=== PATIENT | male | born 1950 | race Caucasian/White ===

== ENCOUNTER 2021-01-03 19:07 | Emergency (ER) | payer MEDICARE, SELFPAY ==
--- NOTE | ~2021-01-03 | CT_ITS ---
EXAMINATION: CT brain wo con DATE: 01/03/2021 21:53 INDICATION: Head injury. TECHNIQUE: Computed tomography (CT) of the head was performed without intravenous contrast. The mA wa s adjusted according to patient size. Iterative reconstruction technique was employed. The dose-lengt h product was 605.33 mGy-cm. COMPARISON: None FINDINGS: There is no intracranial hemorrhage, acute infarction, or abnormal intracranial mass lesion . The ventricles are normal in size. The orbits are normal. There is mild mucosal thickening in the p aranasal sinuses. There are fractures of the nasal bones, right nasal process of maxilla, and nasal s eptum. There is a trace right mastoid effusion. IMPRESSION: 1. Normal brain. 2. Fractures of the nasal bones, right nasal process of maxilla, and nasal septum. Reviewed, dictated and finalized at location A. IMPRESSION: 1. Normal brain. 2. Fractures of the nasal bones, right nasal process of maxilla, and nasal sept um.
--- NOTE | ~2021-01-03 | CT_ITS ---
EXAMINATION: CT facial & cervical spine wo DATE: 01/03/2021 21:53 INDICATION: Head injury. TECHNIQUE: Computed tomography (CT) of the maxillofacial region and cervical spine was performed with out intravenous contrast. Automated exposure control and iterative reconstruction technique were empl oyed. The dose-length product was 343.95 mGy-cm. COMPARISON: None FINDINGS: MAXILLOFACIAL CT: There is rightward deviation of the nasal septum. There are fractures of the nasal septum, nasal bone s, and right nasal process of maxilla. The orbits are normal. There is right periorbital soft tissue swelling. There is a trace right mastoid effusion. CERVICAL SPINE CT: There is complete opacification of the visualized portion of right lung apex. Bone alignment is cindy l. There is mild chronic anterior wedging of T1 and T2 vertebral bodies. There is mildly decreased di sc height at C3-C4, severely decreased disc height at C4-C5 and C5-C6, and moderately decreased disc height at C6-C7 and C7-T1. Osseous central spinal canal is developmentally small from C3 to C6. There is intermittent ossification of posterior longitudinal ligament from C3 to C6. The following disc le vels are specifically discussed: C2-C3: There is mild bilateral uncovertebral joint osteoarthritis. There is moderate bilateral facet joint osteoarthritis. There is mild left neural foraminal stenosis. There is mild central canal steno sis. C3-C4: There is mild bilateral uncovertebral joint osteoarthritis. There is severe left facet joint o steoarthritis. There is moderate left neural foraminal stenosis. There is mild central canal stenosis . C4-C5: There is severe bilateral uncovertebral joint osteoarthritis. There is no facet joint osteoart hritis. There is mild right and moderate left neural foraminal stenosis. There is moderate central ca nal stenosis. C5-C6: There is severe bilateral uncovertebral joint osteoarthritis. There is no facet joint osteoart hritis. There is mild bilateral neural foraminal stenosis. There is moderate central canal stenosis. C6-C7: There is mild right and severe left uncovertebral joint osteoarthritis. There is mild bilatera l facet joint osteoarthritis. There is mild left neural foraminal stenosis. There is mild central can al stenosis. C7-T1: There is moderate bilateral uncovertebral joint osteoarthritis. There is severe right and mild left facet joint osteoarthritis. There is mild bilateral neural foraminal stenosis. There is mild ce ntral canal stenosis. IMPRESSION: 1. Fractures of the nasal septum, nasal bones, and right nasal process of maxilla. 2. Severe cervical spondylosis. 3. Complete opacification of the visualized portion of right lung apex. Chest radiographs are recomme nded. Reviewed, dictated and finalized at location A. IMPRESSION: 1. Fractures of the nasal septum, nasal bones, and right nasal process of maxil la. 2. Severe cervical spondylosis. 3. Complete opacification of the visualized portion of right lung apex. Chest r adiographs are recommended.
[2021-01-03 19:10] VITALS: BP 124/74; PULSE 92; RESP 18; TEMP 37.1; O2SAT 100
--- NOTE | 2021-01-03 19:33 | ED.GENADULT ---
HPI - General Adult General Chief complaint: Fall Stated complaint: FALL/LACERATION Time Seen by Provider: 01/03/21 19:18 History of Present Illness HPI narrative: Patient 70-year-old gentleman who presents the emergency department with chief complaint of fall and head injury. The patient reports that he was walking up the sidewalk at the [facility] and had not had anything to drink today and hit a crack in the sidewalk and fell forward. The patient states he struck his face against the concrete reports he had no loss of conscious reports that he is not on any blood thinners. Patient reports he has a laceration to his nose reports that its not improved by anything or is worsened by anything. Patient reports he has history of lung cancer was in remission but recently they have found some new spots and is to see his oncologist on Wednesday. Related Data Allergies Allergy/AdvReac Type Severity Reaction Status Date / Time No Known Allergies Allergy Verified 01/03/21 19:17 Review of Systems Review of Systems: A 10 system review of systems was completed on the patient and is negative except for what is stated in the HPI. Nursing and ancillary documentation was reviewed. PMFSH Comments Past medical history significant for lung cancer, COPD Social history the patient reports to social use of alcohol Exam Narrative: GENERAL: Well-appearing, well-nourished, and in no acute distress. HEAD: Normocephalic, atraumatic. EYES: PERRLA and EOMI. ENT: There is a laceration to the tip of the nose, there is epistaxis there is no septal hematoma. Mucous membranes moist. NECK: Supple. CHEST: Clear to auscultation. No respiratory distress. HEART: Regular rate and rhythm. No murmur heard. Normal peripheral pulses. ABDOMEN: Soft, nontender, nondistended, normal active bowel sounds. EXTREMITIES: Normal range of motion. No edema. SKIN: Warm, dry, no rash. NEURO: No focal deficits. Alert and oriented x3. PSYCH: Normal mood and affect. Course Course Emergency Course: CT scan facial bones showed evidence of right nasal bone and right nasal process of nasal process of maxilla and nasal septum Vital Signs Vital signs: Vital Signs Temperature 37.1 C 01/03/21 19:10 Pulse Rate 92 01/03/21 19:10 Respiratory Rate 18 01/03/21 19:10 Blood Pressure 124/74 01/03/21 19:10 Pulse Oximetry 100 10/08/21 19:10 Temperature 37.1 C 01/03/21 19:10 Pulse Rate 92 01/03/21 19:10 Respiratory Rate 18 01/03/21 19:10 Blood Pressure 124/74 01/03/21 19:10 Pulse Oximetry 100 01/03/21 19:10 Medical Decision Making Vital Signs Vital Signs: Vital Signs Temperature 37.1 C 01/03/21 19:10 Pulse Rate 92 01/03/21 19:10 Respiratory Rate 18 01/03/21 19:10 Blood Pressure 124/74 01/03/21 19:10 Pulse Oximetry 100 01/03/21 19:10 Temperature 37.1 C 01/03/21 19:10 Pulse Rate 92 01/03/21 19:10 Respiratory Rate 18 01/03/21 19:10 Blood Pressure 124/74 01/03/21 19:10 Pulse Oximetry 100 01/03/21 19:10 Discharge Plan Discharge Clinical Impression: Fall Qualifiers: Encounter type: initial encounter Qualified Code(s): W19.XXXA - Unspecified fall, initial encounter Head injury Qualifiers: Encounter type: initial encounter Qualified Code(s): S09.90XA - Unspecified injury of head, initial encounter Laceration of nose Qualifiers: Encounter type: initial encounter Qualified Code(s): S01.21XA - Laceration without foreign body of nose, initial encounter Fracture of nasal bone Qualifiers: Encounter type: initial encounter Fracture type: open Qualified Code(s): S02.2XXB - Fracture of nasal bones, initial encounter for open fracture Abrasion of face Qualifiers: Encounter type: initial encounter Qualified Code(s): S00.81XA - Abrasion of other part of head, initial encounter Patient Disposition: Home, Self-Care Condition: Stable Instructions: Antibiotic Form, Nasal Fracture (ED), Laceration (ED), Head
[2021-01-03] MEDS: TETANUS,DIPHTHERIA,AC PERTUSSIS ADULT (0.5 ML) BOOSTRIX IM (20:05)
[2021-01-03 21:09] VITALS: BP 123/64; PULSE 80; RESP 18; O2SAT 99
== END 2021-01-03 21:11 | disposition home or self-care (01) ==
PROVIDERS: Emergency Provider Emergency Medicine; PCP Family Medicine Sports Medicine
DX: S02.2XXB Fracture of nasal bones, initial encounter for open fracture (principal); S00.81XA Abrasion of other part of head, initial encounter; Z23 Encounter for immunization; J44.9 Chronic obstructive pulmonary disease, unspecified; Z85.118 Personal history of other malignant neoplasm of bronchus and lung; W01.0XXA Fall on same level from slipping, tripping and stumbling without subsequent striking against object, initial encounter; M47.812 Spondylosis without myelopathy or radiculopathy, cervical region; R91.8 Other nonspecific abnormal finding of lung field
CPT/HCPCS: 12011; 70450; 70486; 72125; 90471; 90715; 99284